=== PATIENT | female | born 1960 | race Caucasian/White ===

== ENCOUNTER 2018-02-19 07:49 | Inpatient (IN) | payer OTHER ==
[~2018-02-19] VITALS: Ht 165.1 cm; Wt 102.6 kg
[~2018-02-19 07:49] MED LIST: ASPI-496 PO; CITA40TA5 PO; EZET10TA18 PO; LOSA25TA6 PO; METO100T5 PO; RANI300T PO; ROSU40TA PO
[2018-02-19] MEDS ORDERED: LACTATED RINGERS 1,000 ML IV SCH (09:06)
[2018-02-19 09:34] LABS: LDL/HDL RATIO 2.3 (0.5-3.0)
[2018-02-19] MEDS ORDERED: BUPIVACAINE/PF-EPI 0.5% 1:200K ONE (09:53)
[2018-02-19] MEDS ORDERED: MIDAZOLAM 1 MG/ML, 2ML ONE (09:59)
[2018-02-19] MEDS ORDERED: CEFAZOLIN 1,000 MG ONE (10:00)
[2018-02-19] MEDS ORDERED: PROPOFOL 10 MG/ML, 20ML ONE (10:00)
[2018-02-19] MEDS ORDERED: ROCURONIUM 10MG/ML,5ML ONE (10:00)
[2018-02-19] MEDS ORDERED: FENTANYL PF 100 MCG/2ML ONE ×2 (10:00→12:08)
[2018-02-19] MEDS ORDERED: NEOSTIGMINE 1 MG/ML, 10ML ONE (10:00)
[2018-02-19] MEDS ORDERED: SUCCINYLCHOLINE 20 MG/ML, 10ML ONE (10:00)
[2018-02-19] MEDS ORDERED: ACETAMINOPHEN 1,000 MG/100 ML IV IVPB ONE (10:00)
[2018-02-19] MEDS ORDERED: GLYCOPYRROLATE 0.2MG/1ML, 5ML ONE (10:00)
[2018-02-19] MEDS ORDERED: LABETALOL 5MG/ML, 20ML IV PRN (11:00)
[2018-02-19] MEDS ORDERED: OXYcodone 5 MG/5 ML ORAL.SOL UDC PO PRN (11:00)
[2018-02-19] MEDS ORDERED: HYDROmorphone 1 MG/ML, 1ML IV PRN (11:00)
[2018-02-19] MEDS ORDERED: MEPERIDINE/PF 25MG/0.5ML IVPush PRN (11:00)
[2018-02-19] MEDS ORDERED: ONDANSETRON 2MG/ML, 2ML IVPush PRN (11:00)
[2018-02-19] MEDS ORDERED: MIDAZOLAM 1 MG/ML, 2ML IV PRN (11:00)
[2018-02-19] MEDS: FENTANYL PF 100 MCG/2ML IV PRN ×2 (12:10→12:22)
[2018-02-19] MEDS ORDERED: DIPHENHYDRAMINE 50 MG/ML, 1ML IV PRN (13:30)
[2018-02-19] MEDS ORDERED: ONDANSETRON 2MG/ML, 2ML IV PRN (13:30)
[2018-02-19] MEDS ORDERED: PHENOL THROAT SPRAY BOTTLE MM PRN (13:30)
[2018-02-19] MEDS ORDERED: SIMETHICONE 80 MG CHEW TAB PO PRN (13:30)
[2018-02-19] MEDS ORDERED: PROMETHAZINE 25 MG SUPP PR PRN (13:30)
[2018-02-19] MEDS ORDERED: LACTATED RINGERS 500 ML IVBOLUS PRN (13:30)
[2018-02-19] MEDS ORDERED: DIPHENHYDRAMINE 25 MG CAPSULE PO PRN (13:30)
[2018-02-19] MEDS: ACETAMINOPHEN 100 ML IV SCH ×2 (13:50→19:37)
[2018-02-19] MEDS: POTASSIUM CHLORIDE 20 MEQ in LACTATED RINGERS 1,000 ML IV SCH ×2 (13:50→21:43)
[2018-02-19 14:00] VITALS: BP 126/88
[2018-02-19] MEDS ORDERED: ENOXAPARIN 40 MG/0.4 ML SQ SCH (18:00)
[2018-02-19 21:09] VITALS: BP 104/61
[2018-02-20 02:25] VITALS: BP 135/73
[2018-02-20 04:48] LABS: BASOPHILS # (AUTO) 0.05 x10^3/uL (0-0.1); BASOPHILS % (AUTO) 1 % (0-1); EOSINOPHILS # (AUTO) 0.02 x10^3/uL (0-0.4); EOSINOPHILS % (AUTO) 0 % (1-7); LYMPHOCYTES # (AUTO) 0.92 x10^3/uL (1-3.4); LYMPHOCYTES % (AUTO) 13 % (22-44); MD NO; MEAN CORPUSCULAR HGB CONC 33.7 g/dL (32.4-35.8); MEAN CORPUSCULAR VOLUME 89.2 fL (80-100); MEAN PLATELET VOLUME 9.8 fL (7.4-10.4); MONOCYTES # (AUTO) 0.63 x10^3/uL (0.2-0.8); MONOCYTES % (AUTO) 9 % (2-9); NEUTROPHILS # (AUTO) 5.38 x10^3/uL (1.8-6.8); NEUTROPHILS % (AUTO) 77 % (42-75); PLATELET COUNT 169 x10^3/uL (130-400); RED BLOOD COUNT 4.58 x10^6/uL (3.82-5.3); RED CELL DISTRIBUTION WIDTH 13.3 % (9.6-15.2)
[2018-02-20 05:02] LABS: ALBUMIN 3.5 g/dL (3.4-5.0); ANION GAP 11 mmol/L (5-15); CALCIUM 8.5 mg/dL (8.5-10.1); CHLORIDE 104 mmol/L (98-107)
[2018-02-20 05:03] LABS: CREATININE 0.69 mg/dL (0.55-1.02)
[2018-02-20] MEDS: POTASSIUM CHLORIDE 20 MEQ in LACTATED RINGERS 1,000 ML IV SCH (06:01)
[2018-02-20 07:18] VITALS: BP 134/71
[2018-02-20] MEDS ORDERED: HYDROcodone/APAP 7.5-325MG/15ML UDC PO PRN (09:30)
[2018-02-20] MEDS ORDERED: ALBUTEROL SULFATE 2.5 MG/3 ML ONE (09:49)
[2018-02-20] MEDS ORDERED: ALBUTEROL SULFATE 2.5 MG/3 ML NPPB PRN (10:00)
[2018-02-20 12:04] VITALS: BP 117/65
[2018-02-20] MEDS ORDERED: HYDR1TAB12 PO (14:04)
[2018-02-20 14:36] VITALS: BP 153/75
== END 2018-02-20 15:50 | disposition home or self-care (01) | DRG 621 ==
LOC: ORIP 07:49 → 4NOR 12:56 → DCLOUNGE 02-20 15:42
PROVIDERS: ADMIT Surgery; ATTEND Surgery
PROC: 0DB64Z3 Excision of Stomach, Percutaneous Endoscopic Approach, Vertical (ICD-10-PCS; principal; 2018-02-19 10:00)
DX: E66.01 Morbid (severe) obesity due to excess calories (principal); I10 Essential (primary) hypertension; E78.00 Pure hypercholesterolemia, unspecified; K66.0 Peritoneal adhesions (postprocedural) (postinfection); Z68.37 Body mass index [BMI] 37.0-37.9, adult; K21.9 Gastro-esophageal reflux disease without esophagitis; F32.9 Major depressive disorder, single episode, unspecified
CPT/HCPCS: 36415; J3490; J7613; 80048; 80061; 82040; 82962; 85025; 88307; 94640; C1729; G0378; J0131; J0690; J1650; J2250; J2270; J2704; J2710; J3010; J3480; C1760; J0330; J7120